=== PATIENT | male | born 1990 | race Caucasian/White ===

== ENCOUNTER 2016-09-18 15:26 | Emergency (ER) | payer OTHER ==
[~2016-09-18] VITALS: Ht 185.4 cm; Wt 67.7 kg
[2016-09-18 15:32] VITALS: TEMP 36.2; Ht 185.4 cm; Wt 67.7 kg
[2016-09-18] MEDS ORDERED: BUSP5TAB59 PO (15:58)
[2016-09-18] MEDS ORDERED: CLIN300C2 PO (15:58)
[2016-09-18 16:52] LABS: BASO % 0.2 %; BASO ABS # 0.02 K/uL (0-0.2); COMPLETE YES; HEMATOCRIT 38.9 % (42-52); IG% 0.3 %; LYMPH % 24.1 %; LYMPH ABS # 2.08 K/uL (1.2-3.4); MEAN CELL VOLUME 89.4 fL (80-100); MEAN CORPUSCULAR HEMOGLOBIN 31.5 pg (25-34); MEAN CORPUSCULAR HGB CONC 35.2 g/dl (32-36); MEAN PLATELET VOLUME 8.7 fL (7.4-10.4); NEUT % 67.4 %; PLATELET COUNT 205 K/uL (130-400); RED BLOOD COUNT 4.35 M/uL (4.7-6.1); WHITE BLOOD COUNT 8.63 K/uL (4.8-10.8)
[2016-09-18 17:02] LABS: BUN/CREATININE RATIO 19.3 (10-20); CALCIUM 8.9 mg/dl (8.5-10.1); CREATININE 0.83 mg/dl (0.60-1.40)
[2016-09-18 18:25] VITALS: BP 111/70; PULSE 61; O2SAT 100
--- NOTE | 2016-09-18 21:34 | EMERGENCY ROOM VISIT NOTE ---
ED Visit Note First contact with patient: 15:50 CHIEF COMPLAINT: I have a red spot on my left leg. HISTORY OF PRESENT ILLNESS: Mr. Mast is an 26-year-old white male who ambulates into the ED accompanied by female friend complaining of a possible infection to the left lower leg. Patient reports he observed a small, hard, tender area in the proximal aspect of the left lower leg 3 days ago. He was seen at [facility] urgent care clinic and was prescribed clindamycin for a possible infection. He reports at that clinic and they did not feel this was an abscess or that it needed to be drained. Since that visit he reports he does not feel the area is less painful or appears to be getting better. He also is having left knee pain. Currently he places the majority of his discomfort over a small ruptured cystic- looking area on the anterior left lower leg approximately 3-4 cm with the. He describes his pain as a pressure sensation. He rates his discomfort 5/10. The pain is nonradiating. Pain worsens with palpation. He has not identified any alleviating factors related to the pain. Has not taken any medications for pain prior to arrival at the hospital. Associated with his pain he also reports he is having left knee pain over the patellar tendon area and his noted a small lump in the left inguinal area. He denies fevers, chills, sweats, skin eruptions, skin color changes, chest pain , shortness of breath, abdominal pain, nausea, vomiting, decreased appetite, painful walking, painful flexion and extension of the knee. REVIEW OF SYSTEMS: As noted above in History of Present Illness; 8 body systems were reviewed with the patient and found to be negative unless noted above otherwise. PAST MEDICAL HISTORY: Patient denies. CURRENT MEDICATION: As previously noted and Buspirone. ALLERGIES TO MEDICATION: Patient denies. SOCIAL HISTORY: Patient is currently employed; he lives with his girlfriend and feels safe in his home environment; he admits to tobacco use and denies alcohol use. PHYSICAL EXAMINATION: Vital Signs: Date Time Temp Pulse Resp B/P Pulse Ox O2 Delivery O2 Flow Rate FiO2 09/18/16 18:25 61 14 111/70 100 09/18/16 15:32 36.2 69 18 126/67 98 Room Air General: 26 year-old white male in no acute distress, nontoxic appearing, afebrile and hemodynamically stable. Neurological: Awake, alert and oriented to person, place and time. Answering questions appropriately and following commands. Skin: Warm, dry and pink. Left Lower Leg: There is an indurated area in the proximal tibia which measures about 1.2 cm in diameter. This area is not fluctuant and there is no pointing or drainage. There is no lymphangitic streaking. There is a zone of inflammation around it but no lymphangitis. There is a marker demarcation line over the anterior lateral aspect of the leg that the patient reports was put on by the provider somnolent initially. He reports she does not remember the redness or swelling throughout this area of demarcation when the line was drawn. Observationally most of this area is now clearly erythema, edema and tenderness. Thorax: Lungs sounds are clear to auscultation and equal bilaterally with symmetrical chest wall movement. No wheezing, rales or rhonchi. No increased respiratory effort. Abdomen: Flat, soft and nontender. Positive bowel sounds in all quadrants. No guarding or rigidity. Left sided lingual lymphadenopathy is palpable. ED COURSE: Patient is assessed as noted above. Laboratory Testing: Test 09/18/16 16:35 Range/Units White Blood Count 8.63 4.8-10.8 K/uL Red Blood Count 4.35 4.7-6.1 M/uL Hemoglobin 13.7 14.0-18.0 g/dL Hematocrit 38.9 42-52 % Mean Corpuscular Volume 89.4 80-100 fL Mean Corpuscular Hemoglobin 31.5 25-34 pg Mean Corpuscular Hemoglobin Concent 35.2 32-36 g/dl Platelet Count 205 130-400 K/uL Mean Platelet Volume 8.7 7.4-10.4 fL Neutrophils (%) (Auto) 67.4 % Lymphocytes (%) (Auto) 24.1 % Monocytes (%) (Auto) 6.0 % Eosinophils (%) (Auto) 2.0 % Basophils (%) (Auto) 0.2 % Neutrophils # (Auto) 5.81 1.4-6.5 K/uL Lymphocytes # (Auto) 2.08 1.2-3.4 K/uL Monocytes # (Auto) 0.52 0.11-0.59 K/uL Eosinophils # (Auto) 0.17 0-0.5 K/uL Basophils # (Auto) 0.02 0-0.2 K/uL RDW Standard Deviation 41.0 36.4-46.3 fL RDW Coefficient of Variation 12.7 11.5-14.5 % Immature Granulocyte % (Auto) 0.3 % Immature Granulocyte # (Auto) 0.03 0.00-0.02 K/uL Erythrocyte Sedimentation Rate 2 0-14 mm/hr Sodium Level 145 136-145 mmol/L Potassium Level 4.0 3.5-5.1 mmol/L Chloride Level 107 98-107 mmol/L Carbon Dioxide Level 30 21-32 mmol/L Anion Gap 8.0 3-11 mmol/L Blood Urea Nitrogen 16 7-18 mg/dl Creatinine 0.83 0.60-1.40 mg/dl Est Creatinine Clear Calc Drug Dose 128.0 ml/min Estimated GFR () 139.8 Estimated GFR (Non- 120.6 BUN/Creatinine Ratio 19.3 10-20 Random Glucose 66 70-99 mg/dl Calcium Level 8.9 8.5-10.1 mg/dl C-Reactive Protein < 0.29 0-0.29 mg/dl Blood Culture: Pending Patient's case was reviewed with Dr. Judge; we agreed on diagnostic approach, treatment, disposition and plan. Patient was offered pain medications and refused. Patient was educated about his condition and instructed on his treatment plan; they verbalized understanding and agreement with this plan. CLINICAL IMPRESSION: Cellulitis. DISPOSITION: Patient discharged to home in stable condition accompanied by his girlfriend; prior to departure he was reassessed and subjectively reported he was feeling better PLAN: Patient was encouraged to use ibuprofen or acetaminophen as needed for pain. Patient was encouraged to continue his clindamycin until completed. Patient was encouraged to follow-up with his PCP or return to the ED in 36-48 hours for recheck and culture results. Patient was encouraged return the ED sooner for worsening/uncontrolled pain, right streaking up the legs or into the knee, increasing pain in his lymph node , fevers or any new/concerning symptoms.
== END 2016-09-18 18:31 | disposition home or self-care (01) ==
LOC: C.EDB 15:28 → C.EDD 18:31
DX: L03.116 Cellulitis of left lower limb (principal); F17.200 Nicotine dependence, unspecified, uncomplicated